=== PATIENT | female | born 1990 | race Two or more races ===

== ENCOUNTER 2021-07-12 02:48 | Emergency (ER) | payer OTHER ==
[~2021-07-12] VITALS: Ht 157.5 cm; Wt 65.8 kg
[2021-07-12] MEDS ORDERED: PROVENTIL HFA6.7 GM (03:01)
== END 2021-07-12 11:15 | disposition left against medical advice (07) ==
LOC: ER 02:48
DX: K29.60 Other gastritis without bleeding (principal); Z20.822 Contact with and (suspected) exposure to COVID-19